=== PATIENT | male | born 1950 | race Caucasian/White ===

== ENCOUNTER → 2018-02-03 | Outpatient (CLI) | payer MEDICARE ==
[~2018-02-03] MED LIST: ACET-1600 PO; ASCO500T59 PO; ATOR20TA37 PO; CHOL400T10 PO; CYAN1TAB2 PO; MAGN250T8 PO; MULT-297 PO; OMEG1CAP6 PO; SAW450CA7 PO; ST.300TA3 PO; UBID100C41 PO
[2018-02-03 09:25] LABS: BASOPHILS # (AUTO) 0.04 x10^3/uL (0-0.1); BASOPHILS % (AUTO) 1 % (0-1); EOSINOPHILS # (AUTO) 0.05 x10^3/uL (0-0.4); EOSINOPHILS % (AUTO) 1 % (1-7); LYMPHOCYTES # (AUTO) 1.78 x10^3/uL (1-3.4); LYMPHOCYTES % (AUTO) 20 % (22-44); MD NO; MEAN CORPUSCULAR HEMOGLOBIN 30.2 pg (27.5-34.5); MEAN CORPUSCULAR HGB CONC 33.9 g/dL (33.2-36.2); MEAN CORPUSCULAR VOLUME 88.9 fL (81-97); MEAN PLATELET VOLUME 8.6 fL (7.4-10.4); MONOCYTES # (AUTO) 0.59 x10^3/uL (0.2-0.8); MONOCYTES % (AUTO) 7 % (2-9); NEUTROPHILS # (AUTO) 6.47 x10^3/uL (1.8-6.8); NEUTROPHILS % (AUTO) 72 % (42-75); PLATELET COUNT 186 x10^3/uL (130-400); RED BLOOD COUNT 5.33 x10^6/uL (4.38-5.82); RED CELL DISTRIBUTION WIDTH 12.8 % (9.4-14.8)
[2018-02-03 09:36] LABS: ANION GAP 5 mmol/L (5-15); CALCIUM 8.8 mg/dL (8.5-10.1); CHLORIDE 110 mmol/L (98-107); CREATININE 1.04 mg/dL (0.7-1.3)
[2018-02-03 09:39] LABS: INTERNATIONAL NORMALIZED RATIO 1.08 (0.93-1.1); PROTHROMBIN TIME 11.4 Seconds (9.6-11.5)
[2018-02-03 09:59] LABS: MICROSCOPIC NOT IND
[2018-02-03 10:10] LABS: HEMOGLOBIN A1C 5.8 % (4.2-6.3)
== END | disposition home or self-care (01) ==
LOC: STAR 08:01
PROVIDERS: ATTEND Student in an Organized Health Care Education/Training Program
DX: Z01.818 Encounter for other preprocedural examination (principal); N40.0 Benign prostatic hyperplasia without lower urinary tract symptoms; I51.7 Cardiomegaly; Z79.899 Other long term (current) drug therapy
CPT/HCPCS: 36415; 71046; 80048; 81003; 83036; 85025; 85610; 85730; 87086; 93005

== ENCOUNTER 2018-02-17 05:26 | Inpatient (IN) | payer MEDICARE ==
[2018-02-03 08:47] VITALS: BP 108/66
[~2018-02-17] VITALS: Ht 177.8 cm; Wt 100.9 kg
[2018-02-17] MEDS ORDERED: LACTATED RINGERS 1,000 ML IV SCH (06:00)
[2018-02-17] MEDS ORDERED: BUPIVACAINE/PF 0.25% ONE (06:56)
[2018-02-17] MEDS ORDERED: EPINEPHRINE 1 MG/ML, 1ML ONE (06:57)
[2018-02-17] MEDS ORDERED: INDIGO CARMINE 0.8%, 5ML ONE (06:57)
[2018-02-17] MEDS ORDERED: THROMBIN 5,000 UNIT VIAL TP ONE (06:57)
[2018-02-17] MEDS ORDERED: MIDAZOLAM 1 MG/ML, 2ML ONE (07:11)
[2018-02-17] MEDS ORDERED: FENTANYL PF 250 MCG/5ML ONE (07:11)
[2018-02-17] MEDS ORDERED: PHENYLEPHRINE 10 MG/ML ONE (07:26)
[2018-02-17] MEDS ORDERED: ROCURONIUM 10 MG/ML,10ML ONE (07:26)
[2018-02-17] MEDS ORDERED: DEXAMETHASONE 4 MG/ML, 1ML ONE (07:26)
[2018-02-17] MEDS ORDERED: ONDANSETRON 2MG/ML, 2ML ONE (07:26)
[2018-02-17] MEDS ORDERED: GLYCOPYRROLATE 0.2MG/1ML, 5ML ONE (07:26)
[2018-02-17] MEDS ORDERED: PROPOFOL 10 MG/ML, 20ML ONE (07:26)
[2018-02-17] MEDS ORDERED: CEFAZOLIN 1,000 MG ONE (07:26)
[2018-02-17] MEDS ORDERED: ALBUTEROL SULFATE 2.5 MG/3 ML NPPB PRN (08:00)
[2018-02-17] MEDS ORDERED: LABETALOL 5MG/ML, 20ML IV PRN (08:00)
[2018-02-17] MEDS ORDERED: PROMETHAZINE 25 MG/ML, 1ML IV PRN (08:00)
[2018-02-17] MEDS ORDERED: hydrALAzine 20 MG/ML, 1ML IV PRN (08:00)
[2018-02-17] MEDS ORDERED: DIAZEPAM 5 MG/ML, 2ML IVPush PRN (08:00)
[2018-02-17] MEDS ORDERED: MEPERIDINE/PF 25MG/0.5ML IVPush PRN (08:00)
[2018-02-17] MEDS ORDERED: ACETAMINOPHEN 325 MG TABLET PO PRN (08:00)
[2018-02-17] MEDS ORDERED: FENTANYL PF 100 MCG/2ML IV PRN (08:00)
[2018-02-17] MEDS ORDERED: OXYcodone 5 MG/5 ML ORAL.SOL UDC PO PRN (08:00)
[2018-02-17] MEDS ORDERED: OPIUM/BELLADONNA SUPP.RECT 16.2-30 MG ONE (11:50)
[2018-02-17] MEDS ORDERED: HYDROmorphone 2 MG/ML, 1ML ONE ×3 (11:50→16:54)
[2018-02-17] MEDS: HYDROmorphone 2 MG/ML, 1ML IVPush PRN ×5 (11:59→12:57)
[2018-02-17] MEDS ORDERED: ONDANSETRON 2MG/ML, 2ML IV PRN (12:00)
[2018-02-17] MEDS ORDERED: OPIUM/BELLADONNA SUPP.RECT 16.2-30 MG PR PRN (12:00)
[2018-02-17] MEDS ORDERED: HEPARIN 5,000 UNITS/ML, 1ML SQ SCH (12:00)
[2018-02-17 12:36] LABS: BASOPHILS # (AUTO) 0.04 x10^3/uL (0-0.1); BASOPHILS % (AUTO) 0 % (0-1); EOSINOPHILS # (AUTO) 0.28 x10^3/uL (0-0.4); EOSINOPHILS % (AUTO) 2 % (1-7); LYMPHOCYTES # (AUTO) 0.92 x10^3/uL (1-3.4); LYMPHOCYTES % (AUTO) 7 % (22-44); MD NO; MEAN CORPUSCULAR HEMOGLOBIN 30.5 pg (27.5-34.5); MEAN CORPUSCULAR HGB CONC 33.8 g/dL (33.2-36.2); MEAN CORPUSCULAR VOLUME 90.2 fL (81-97); MEAN PLATELET VOLUME 8.3 fL (7.4-10.4); MONOCYTES # (AUTO) 0.19 x10^3/uL (0.2-0.8); MONOCYTES % (AUTO) 1 % (2-9); NEUTROPHILS # (AUTO) 12.03 x10^3/uL (1.8-6.8); NEUTROPHILS % (AUTO) 89 % (42-75); PLATELET COUNT 176 x10^3/uL (130-400); RED BLOOD COUNT 5.11 x10^6/uL (4.38-5.82); RED CELL DISTRIBUTION WIDTH 12.8 % (9.4-14.8)
[2018-02-17 12:50] LABS: ANION GAP 6 mmol/L (5-15); CALCIUM 8.7 mg/dL (8.5-10.1); CHLORIDE 109 mmol/L (98-107); CREATININE 1.22 mg/dL (0.7-1.3)
[2018-02-17 13:20] VITALS: BP 124/71
[2018-02-17] MEDS: ACETAMINOPHEN 325 MG TABLET PO SCH ×2 (14:07→20:00)
[2018-02-17] MEDS: OXYcodone 5 MG/5 ML ORAL.SOL UDC PO PRN ×2 (14:07→20:45)
[2018-02-17] MEDS: CEFAZOLIN PMX 1GM/50ML 50 ML IVPB SCH (17:00)
[2018-02-17] MEDS: HYDROmorphone 1 MG/ML, 1ML IV PRN (17:03)
[2018-02-17] MEDS: D5%-LACTATED RINGERS 1,000 ML IV SCH (17:03)
[2018-02-17 19:26] VITALS: BP 111/63
[2018-02-17] MEDS: DOCUSATE 100 MG CAPSULE PO SCH (20:45)
[2018-02-18] MEDS: CEFAZOLIN PMX 1GM/50ML 50 ML IVPB SCH (00:19)
[2018-02-18 00:20] VITALS: BP 119/54
[2018-02-18] MEDS: ACETAMINOPHEN 325 MG TABLET PO SCH ×4 (02:04→20:00)
[2018-02-18] MEDS: D5%-LACTATED RINGERS 1,000 ML IV SCH ×3 (02:05→20:00)
[2018-02-18] MEDS: OXYcodone 5 MG/5 ML ORAL.SOL UDC PO PRN ×3 (03:00→17:59)
[2018-02-18 04:02] VITALS: BP 118/58
[2018-02-18 05:38] LABS: CHLORIDE 106 mmol/L (98-107)
[2018-02-18 05:49] LABS: ANION GAP 4 mmol/L (5-15); CALCIUM 8.1 mg/dL (8.5-10.1)
[2018-02-18 07:39] VITALS: BP 102/53
[2018-02-18] MEDS ORDERED: HYDROmorphone 2 MG/ML, 1ML ONE (08:31)
[2018-02-18] MEDS: HYDROmorphone 1 MG/ML, 1ML IV PRN (08:36)
[2018-02-18] MEDS: HEPARIN 5,000 UNITS/ML, 1ML SQ SCH ×2 (08:48→16:16)
[2018-02-18] MEDS: DOCUSATE 100 MG CAPSULE PO SCH ×2 (08:48→20:00)
[2018-02-18] MEDS: POLYETHYLENE GLYCOL 17 GM PACKET PO SCH (08:49)
[2018-02-18] MEDS: KETOROLAC 30 MG/1 ML IV SCH ×2 (12:15→17:59)
[2018-02-18 13:14] VITALS: BP 111/54
[2018-02-18 19:42] VITALS: BP 106/42
[2018-02-19] MEDS: OXYcodone 5 MG/5 ML ORAL.SOL UDC PO PRN ×5 (00:13→23:44)
[2018-02-19] MEDS: KETOROLAC 30 MG/1 ML IV SCH ×5 (00:13→23:42)
[2018-02-19] MEDS: HEPARIN 5,000 UNITS/ML, 1ML SQ SCH ×4 (00:13→23:43)
[2018-02-19 01:30] VITALS: BP 102/53
[2018-02-19] MEDS: ACETAMINOPHEN 325 MG TABLET PO SCH ×4 (02:42→20:51)
[2018-02-19] MEDS: D5%-LACTATED RINGERS 1,000 ML IV SCH ×2 (03:25→15:19)
[2018-02-19 05:51] LABS: BASOPHILS # (AUTO) 0.04 x10^3/uL (0-0.1); BASOPHILS % (AUTO) 1 % (0-1); EOSINOPHILS # (AUTO) 0.09 x10^3/uL (0-0.4); EOSINOPHILS % (AUTO) 1 % (1-7); LYMPHOCYTES # (AUTO) 1.81 x10^3/uL (1-3.4); LYMPHOCYTES % (AUTO) 29 % (22-44); MD NO; MEAN CORPUSCULAR HEMOGLOBIN 30.8 pg (27.5-34.5); MEAN CORPUSCULAR HGB CONC 34.2 g/dL (33.2-36.2); MEAN CORPUSCULAR VOLUME 90.1 fL (81-97); MEAN PLATELET VOLUME 8.4 fL (7.4-10.4); MONOCYTES # (AUTO) 0.62 x10^3/uL (0.2-0.8); MONOCYTES % (AUTO) 10 % (2-9); NEUTROPHILS # (AUTO) 3.72 x10^3/uL (1.8-6.8); NEUTROPHILS % (AUTO) 59 % (42-75); PLATELET COUNT 120 x10^3/uL (130-400); RED BLOOD COUNT 3.82 x10^6/uL (4.38-5.82); RED CELL DISTRIBUTION WIDTH 13.1 % (9.4-14.8)
[2018-02-19 06:00] LABS: ANION GAP 3 mmol/L (5-15); CALCIUM 7.6 mg/dL (8.5-10.1); CHLORIDE 109 mmol/L (98-107)
[2018-02-19 06:02] LABS: CREATININE 0.91 mg/dL (0.7-1.3)
[2018-02-19 07:07] VITALS: BP 129/69
[2018-02-19] MEDS: DOCUSATE 100 MG CAPSULE PO SCH ×2 (08:53→20:51)
[2018-02-19] MEDS: POLYETHYLENE GLYCOL 17 GM PACKET PO SCH (08:54)
[2018-02-19 13:50] VITALS: BP 128/64
[2018-02-19 18:56] VITALS: BP 118/58
[2018-02-20 01:18] VITALS: BP 119/58
[2018-02-20] MEDS: ACETAMINOPHEN 325 MG TABLET PO SCH ×2 (03:40→09:35)
[2018-02-20] MEDS: OXYcodone 5 MG/5 ML ORAL.SOL UDC PO PRN (03:40)
[2018-02-20 05:52] LABS: CHLORIDE 108 mmol/L (98-107)
[2018-02-20] MEDS: KETOROLAC 30 MG/1 ML IV SCH (06:02)
[2018-02-20 06:24] LABS: ANION GAP 5 mmol/L (5-15); CREATININE 0.83 mg/dL (0.7-1.3)
[2018-02-20 07:05] VITALS: BP 127/67
[2018-02-20] MEDS: POLYETHYLENE GLYCOL 17 GM PACKET PO SCH (09:34)
[2018-02-20] MEDS: HEPARIN 5,000 UNITS/ML, 1ML SQ SCH (09:35)
[2018-02-20] MEDS: DOCUSATE 100 MG CAPSULE PO SCH (09:35)
[2018-02-20] MEDS: D5%-LACTATED RINGERS 1,000 ML IV SCH (09:39)
[2018-02-20] MEDS ORDERED: OXYC10TA6 PO (11:07)
[2018-02-20] MEDS ORDERED: DOCU-131 PO (11:07)
== END 2018-02-20 12:26 | disposition home or self-care (01) | DRG 707 ==
LOC: OUT 05:26 → ORIP 11:43 → 4NOR 13:12
PROVIDERS: ADMIT Student in an Organized Health Care Education/Training Program; ATTEND Student in an Organized Health Care Education/Training Program
PROC: 8E0W4CZ Robotic Assisted Procedure of Trunk Region, Percutaneous Endoscopic Approach (ICD-10-PCS; 2018-02-17)
PROC: 0DNW4ZZ Release Peritoneum, Percutaneous Endoscopic Approach (ICD-10-PCS; 2018-02-17)
PROC: 0VT04ZZ Resection of Prostate, Percutaneous Endoscopic Approach (ICD-10-PCS; principal; 2018-02-17 07:30)
DX: N40.1 Benign prostatic hyperplasia with lower urinary tract symptoms (principal); N13.8 Other obstructive and reflux uropathy; R71.0 Precipitous drop in hematocrit; Z88.2 Allergy status to sulfonamides; K66.0 Peritoneal adhesions (postprocedural) (postinfection)
CPT/HCPCS: 36415; 76770; 80048; 85014; 85018; 85025; 86850; 86900; 88309; C1729; G0378; J0171; J0690; J1100; J1170; J1644; J1885; J2250; J2405; J2704; J3010; J3490; C1760; J2370; J7120; J7121

== ENCOUNTER 2018-02-24 13:22 | Outpatient (CLI) | payer MEDICARE ==
[~2018-02-24 13:22] MED LIST changes: +DOCU-131 PO; +OXYC10TA6 PO
[2018-02-24] MEDS ORDERED: CYSTO CONRAY II 250 ML VIAL UR ONE (14:31)
== END 2018-02-24 23:59 | disposition home or self-care (01) ==
LOC: RAD 13:22
PROVIDERS: ATTEND Student in an Organized Health Care Education/Training Program
DX: N40.1 Benign prostatic hyperplasia with lower urinary tract symptoms (principal); N13.8 Other obstructive and reflux uropathy
CPT/HCPCS: 51600; 74430; Q9958

== ENCOUNTER 2018-03-04 08:11 | Outpatient (CLI) | payer MEDICARE ==
[2018-03-04] MEDS ORDERED: CYSTO CONRAY II 250 ML VIAL UR ONE (09:10)
== END 2018-03-04 23:59 | disposition home or self-care (01) ==
LOC: RAD 08:11
PROVIDERS: ATTEND Student in an Organized Health Care Education/Training Program
DX: N32.3 Diverticulum of bladder (principal); N32.89 Other specified disorders of bladder; N40.1 Benign prostatic hyperplasia with lower urinary tract symptoms
CPT/HCPCS: 74430; Q9958